=== PATIENT | male | born 1980 | race Caucasian/White ===

== ENCOUNTER 2017-10-17 21:52 | Emergency (ER) | payer SELFPAY ==
[2017-10-17 23:19] VITALS: BP 118/73; PULSE 72; RESP 18; TEMP 98.2; O2SAT 98
--- NOTE | 2017-10-17 23:27 | ED PDOC ---
HPI: General Adult Time Seen by Provider: 10/17/17 23:25 Chief Complaint (Nursing): Abdominal Pain Chief Complaint (Provider): hemorrhoids History Per: Patient Additional Complaint(s): 37-year-old male presents with painful external hemorrhoids ongoing for 2 weeks. He was seen last week at [facility] and was prescribed topical cream which is not helping. He is also been taking ibuprofen which has not helped. He denies any active bleeding, no fever or chills. He is tolerating liquids and solids unable to have bowel movements. PMD: Dr. Marrero Past Medical History Reviewed: Historical Data, Nursing Documentation, Vital Signs Vital Signs: Last Vital Signs Temp 98.2 F 10/17/17 23:16 Pulse 72 10/17/17 23:16 Resp 18 10/17/17 23:16 BP 118/73 10/17/17 23:16 Pulse Ox 98 10/17/17 23:16 - Medical History PMH: No Chronic Diseases - Surgical History Surgical History: No Surg Hx - Family History Family History: States: No Known Family Hx - Living Arrangements Living Arrangements: With Friends/Others - Social History Current smoker - smoking cessation education provided: No Alcohol: Social Drugs: Denies - Home Medications Home Medications: Ambulatory Orders Medication Instructions Recorded Hard Fat/Phenylephrine [place] 1 sup RC BID #30 sup 10/17/17 [Anusol Suppository] Ibuprofen [Motrin Tab] 800 mg PO Q8 PRN #20 tab 10/17/17 Lidocaine 5% 1 applic TOP TID PRN #1 tube 10/17/17 - Allergies Allergies/Adverse Reactions: Allergies Allergy/AdvReac Type Severity Reaction Status Date / Time No Known Allergies Allergy Verified 10/17/17 23:16 Review of Systems ROS Statement: Except As Marked, All Systems Reviewed And Found Negative Constitutional: Negative for: Fever Gastrointestinal: Positive for: Rectal Pain Physical Exam - Reviewed Nursing Documentation Reviewed: Yes Vital Signs Reviewed: Yes - Physical Exam Appears: Positive for: Well, Non-toxic, No Acute Distress Skin: Positive for: Normal Color. Negative for: Rash Eye Exam: Positive for: Normal appearance Cardiovascular/Chest: Positive for: Regular Rate, Rhythm Respiratory: Positive for: Normal Breath Sounds Gastrointestinal/Abdominal: Positive for: Soft. Negative for: Tenderness, Distended, Guarding, Rebound Rectal: Positive for: Other (External nonthrombosed hemorrhoids with mild tenderness to palpation, no active bleeding) Extremity: Positive for: Normal ROM Neurologic/Psych: Positive for: Alert, Oriented - ECG O2 Sat by Pulse Oximetry: 98 Pulse Ox Interpretation: Normal Medical Decision Making Medical Decision Making: Impression: External nonthrombosed hemorrhoids. Plan: IM toradol Patient given prescriptions for Anusol suppositories, lidocaine topical cream and Motrin. He was advised to follow-up with primary doctor or with surgeon if symptoms do not improve meds. Patient verbalized understanding of the need for close follow-up. Disposition - Clinical Impression Clinical Impression: External hemorrhoid - Patient ED Disposition Is Patient to be Admitted: No Counseled Patient/Family Regarding: Diagnosis, Need For Followup, Rx Given - Disposition Referrals: Tyler Marrero MD [Staff Provider] - Mendel Siu MD [Staff Provider] - Disposition: Routine/Home Disposition Time: 23:26 Condition: STABLE Additional Instructions: Take meds as directed. Follow up with primary care doctor or with surgeon for any persistent symptoms. Prescriptions: Hard Fat/Phenylephrine [place] [Anusol Suppository] 1 sup RC BID #30 sup Ibuprofen [Motrin Tab] 800 mg PO Q8 PRN #20 tab PRN Reason: Pain, Moderate (4-7) Lidocaine 5% 1 applic TOP TID PRN #1 tube PRN Reason: Pain Instructions: Hemorrhoids
== END 2017-10-17 23:38 | disposition home or self-care (01) ==
LOC: H.ER 21:52
DX: K64.4 Residual hemorrhoidal skin tags (principal)
CPT/HCPCS: 96372; 99283; J1885